=== PATIENT | female | born 1955 | race Two or more races ===

== ENCOUNTER 2024-01-16 15:55 | Emergency (ER) | payer BC, OTHER ==
[~2024-01-16] VITALS: Ht 157.5 cm; Wt 77.2 kg
[2024-01-16 16:00] VITALS: BP 172/108; PULSE 88; RESP 10; O2SAT 100
== END 2024-01-16 20:22 | disposition home or self-care (01) ==
LOC: ER 15:55 → EDBD 15:55 → ER 20:22
DX: R06.02 Shortness of breath (principal); T41.295A Adverse effect of other general anesthetics, initial encounter; F32.A Depression, unspecified; Z98.890 Other specified postprocedural states; Y92.89 Other specified places as the place of occurrence of the external cause